=== PATIENT | male | born 2000 ===

== ENCOUNTER 2022-08-04 17:04 | Emergency (ER) ==
[~2022-08-04] VITALS: Ht 165.1 cm; Wt 70.9 kg
[2022-08-04] MEDS ORDERED: PERC5TAB12 PO (18:49)
[2022-08-04] MEDS ORDERED: PERCOCET 5MG/325MG TAB PO ONE (18:50)
== END 2022-08-04 19:14 | disposition home or self-care (01) ==
LOC: M ED 17:04
DX: S82.61XA Displaced fracture of lateral malleolus of right fibula, initial encounter for closed fracture (principal); V00.141A Fall from scooter (nonmotorized), initial encounter; Y92.410 Unspecified street and highway as the place of occurrence of the external cause; Y93.9 Activity, unspecified; Y99.9 Unspecified external cause status; Z88.1 Allergy status to other antibiotic agents